=== PATIENT | female | born 1975 | race Caucasian/White ===

== ENCOUNTER 2017-12-02 16:11 | Inpatient (IN) ==
[2017-12-02] MEDS ORDERED: HYDROmorphone 2 MG/1 ML VIAL IV STA (21:29)
[2017-12-02] MEDS ORDERED: ONDANSETRON 4 MG/2 ML VIAL IV STA (21:29)
[2017-12-02] MEDS ORDERED: MORPHINE 4 MG/1 ML VIAL IV STA ×2 (21:40→23:52)
[2017-12-02 22:08] LABS: Basophils # 0.1 10*3/uL (0.0-0.2); Basophils % 0.8 % (0.0-0.8); Eosinophils # 0.4 10*3/uL (0.0-0.87); Eosinophils % 3.3 % (0.00-10.9); Hematocrit 41.5 VOL% (35.7-47.0); Hemoglobin 13.4 GM/DL (12.0-16.0); Immature Granulocytes % 0.6 %; Immature Granulocytes Absolute 0.08 #; Lymphocytes # 3.2 10*3/uL (1.4-4.0); Lymphocytes % 24.8 % (21.3-54.2); Mean Corpuscular HGB Conc 32.3 GM/DL (32-36); Mean Corpuscular Hemoglobin 28 PG (27-34); Mean Corpuscular Volume 86.6 FL (87-102); Mean Platelet Volume 10.1 FL (9.6-12.0); Monocytes # 0.9 10*3/uL (0.11-0.8); Monocytes % 7.1 % (1.7-12.7); Neutrophils # 8.2 10*3/uL (1.4-7.4); Neutrophils % 63.4 % (38.7-73.9); Platelet Count 461 T/CUMM (130-400); Red Blood Count 4.79 MC/CUMM (3.8-5.5); Red Cell Distribution Width 12.7 % (9.3-17.3); White Blood Count 12.9 T/CUMM (4-12)
[2017-12-02 22:15] LABS: Apearance,Urine Slightly Hazy (Clear); Bacteria,Urine Few /HPF (Few); Bilirubin,Urine Negative (Negative); Blood, Urine Small mg/dL (Negative); Glucose,Urine (UA) >=500 mg/dL (Negative); Ketones,Urine Negative (Negative); Mucus,Urine Occasional /LPF (Occasional); Nitrite,Urine Negative (Negative); Protein,Urine Negative; RBC,Urine 4 /HPF (0-4); Squamous Epithelial Cell,Urine Occasional /HPF (0-10); Transitional Epi Cells,Urine Occasional /HPF (<1); Urine Color Straw (Yellow); Urine Specific Gravity 1.007 (1.001-1.035); Urine Urobilinogen < 2.0 EU/DL (0.2-1.0); WBC,Urine 29 /HPF (0-6)
[2017-12-02 22:28] LABS: Alanine Aminotransferase 18 U/L (13-56); Albumin 3.3 G/DL (3.4-5.0); Alkaline Phosphatase 50 U/L (45-117); Aspartate Amino Transferase 16 U/L (0-37); Bilirubin,Total < 0.39 MG/DL (0.2-1.0); Blood Urea Nitrogen 13 MG/DL (7-18); Calcium 9.2 MG/DL (8.5-10.1); Glucose 110 MG/DL (74-106); Osmolality,Calculated 273.8 MOS/KG (273-304); Potassium 4.4 MMOL/L (3.5-5.1); Sodium 137 MMOL/L (136-145); Total Protein 8.3 G/DL (6.4-8.3)
[2017-12-03] MEDS ORDERED: cefOXitin 1,000 MG in SODIUM CHLORIDE 0.9% 100 ML IV STA (00:31)
[2017-12-03] MEDS ORDERED: ACETAMINOPHEN 325 MG TABLET PO PRN (00:32)
[2017-12-03] MEDS ORDERED: MORPHINE 4 MG/1 ML VIAL IV PRN (00:32)
[2017-12-03] MEDS ORDERED: BISACODYL 10 MG SUPP RECTAL PRN (00:32)
[2017-12-03] MEDS ORDERED: MAGNESIUM HYDROXIDE SUSP 30 ML UDCUP PO PRN (00:32)
[2017-12-03] MEDS ORDERED: LACTATED RINGERS 1,000 ML IV SCH (01:00)
[2017-12-03] MEDS ORDERED: CLINDAMYCIN 600 MG/4 ML VIAL ONE (01:12)
[2017-12-03] MEDS: SODIUM CHLORIDE 0.9% 1,000 ML IV SCH ×3 (01:12→17:58)
[2017-12-03] MEDS: CLINDAMYCIN INJ 900 MG in PREMIX 1 EACH IV SCH ×3 (01:20→16:58)
[2017-12-03] MEDS: ONDANSETRON 4 MG/2 ML VIAL IV PRN ×2 (03:40→09:25)
[2017-12-03] MEDS: IBUPROFEN 800 MG TABLET PO PRN ×2 (07:45→15:54)
[2017-12-03] MEDS ORDERED: CLINDAMYCIN INJ 50 ML IV ONE (09:08)
[2017-12-03] MEDS: DOCUSATE SODIUM 100 MG CAPSULE PO SCH ×2 (09:23→21:44)
[2017-12-03] MEDS ORDERED: ETOMIDATE 20 MG/10 ML VIAL IV ONE (09:29)
[2017-12-03] MEDS ORDERED: ROCURONIUM 100 MG/10 ML VIAL IV ONE (09:30)
[2017-12-04] MEDS: CLINDAMYCIN INJ 900 MG in PREMIX 1 EACH IV SCH ×2 (01:25→09:33)
[2017-12-04] MEDS: SODIUM CHLORIDE 0.9% 1,000 ML IV SCH (01:50)
[2017-12-04] MEDS: IBUPROFEN 800 MG TABLET PO PRN (03:03)
[2017-12-04 07:10] VITALS: BP 123/72
[2017-12-04 09:33] LABS: Basophils # 0.1 10*3/uL (0.0-0.2); Basophils % 0.6 % (0.0-0.8); Eosinophils # 0.3 10*3/uL (0.0-0.87); Eosinophils % 2.7 % (0.00-10.9); Hematocrit 36.2 VOL% (35.7-47.0); Hemoglobin 11.8 GM/DL (12.0-16.0); Immature Granulocytes % 0.6 %; Immature Granulocytes Absolute 0.06 #; Lymphocytes # 1.6 10*3/uL (1.4-4.0); Lymphocytes % 17.2 % (21.3-54.2); Mean Corpuscular HGB Conc 32.6 GM/DL (32-36); Mean Corpuscular Hemoglobin 28 PG (27-34); Mean Corpuscular Volume 85.6 FL (87-102); Mean Platelet Volume 10.4 FL (9.6-12.0); Monocytes # 0.6 10*3/uL (0.11-0.8); Monocytes % 6.3 % (1.7-12.7); Neutrophils # 6.8 10*3/uL (1.4-7.4); Neutrophils % 72.6 % (38.7-73.9); Platelet Count 365 T/CUMM (130-400); Red Blood Count 4.23 MC/CUMM (3.8-5.5); Red Cell Distribution Width 12.4 % (9.3-17.3); White Blood Count 9.3 T/CUMM (4-12)
[2017-12-04] MEDS: DOCUSATE SODIUM 100 MG CAPSULE PO SCH (09:35)
== END 2017-12-04 12:35 | disposition home or self-care (01) | DRG 700 ==
LOC: N.ED 16:11 → N.EDINP 12-03 00:32 → N.OB 12-03 15:12
PROVIDERS: ADMIT Obstetrics & Gynecology; ATTEND Obstetrics & Gynecology

== ENCOUNTER 2019-02-24 13:27 | Observation (INO) ==
[2019-02-24] MEDS ORDERED: SODIUM CHLORIDE 0.9% 1,000 ML IV STA (13:58)
[2019-02-24 14:47] LABS: Basophils % 0.3 % (0.0-0.8); Hematocrit 45.4 VOL% (35.7-47.0); Immature Granulocytes Absolute 0.07 #; Lymphocytes # 0.5 10*3/uL (1.4-4.0); Lymphocytes % 7.1 % (21.3-54.2); Mean Corpuscular Volume 90.1 FL (87-102); Mean Platelet Volume 10.1 FL (9.6-12.0); Monocytes % 1.6 % (1.7-12.7); Platelet Count 220 T/CUMM (130-400); Red Blood Count 5.04 MC/CUMM (3.8-5.5); Red Cell Distribution Width 15.2 % (9.3-17.3); White Blood Count 7.1 T/CUMM (4-12)
[2019-02-24 14:49] LABS: Alanine Aminotransferase 25 U/L (13-56); Albumin 2.8 G/DL (3.4-5.0); Alkaline Phosphatase 56 U/L (45-117); Aspartate Amino Transferase 24 U/L (0-37); Bilirubin,Total < 0.39 MG/DL (0.2-1.0); Blood Urea Nitrogen 23 MG/DL (7-18); Calcium 8.4 MG/DL (8.5-10.1); Glucose 267 MG/DL (74-106); Hemoglobin 13.6 GM/DL (12.0-16.0); Osmolality,Calculated 291.4 MOS/KG (273-304); Total Protein 6.7 G/DL (6.4-8.3)
[2019-02-24 15:44] LABS: Apearance,Urine CLOUDY (Clear); Bacteria,Urine Many /HPF (Few); Bilirubin,Urine Negative (Negative); Blood, Urine Negative (Negative); Glucose,Urine (UA) >=500 mg/dL (Negative); Ketones,Urine Negative (Negative); Mucus,Urine Occasional /LPF (Occasional); Nitrite,Urine Negative (Negative); Protein,Urine Negative; RBC,Urine 2 /HPF (0-4); Squamous Epithelial Cell,Urine Occasional /HPF (0-10); Urine Color Red (Yellow); Urine Urobilinogen < 2.0 EU/DL (0.2-1.0); WBC,Urine 6 /HPF (0-6)
[2019-02-24] MEDS ORDERED: ACETAMINOPHEN 500 MG TABLET PO STA (16:12)
[2019-02-24] MEDS ORDERED: ACETAMINOPHEN 500 MG TABLET ONE (16:19)
[2019-02-24 17:07] LABS: Band Neutrophils 2 % (0-10); Lymphocytes 7 % (20-55); Macrocytosis Slight; Platelet Estimate Normal; Segmented Neutrophils 89 % (50-85); Total Cells Counted 100
[2019-02-24] MEDS ORDERED: GLUCAGON 1 MG VIAL IM PRN (17:40)
[2019-02-24] MEDS ORDERED: ONDANSETRON 4 MG/2 ML VIAL IV PRN (17:40)
[2019-02-24] MEDS ORDERED: DEXTROSE 50% 25 GM/50 ML VIAL IV PRN (17:40)
[2019-02-24] MEDS ORDERED: IBUPROFEN 200 MG TABLET PO PRN (17:47)
[2019-02-24] MEDS ORDERED: ONDANSETRON 4 MG TABLET PO PRN (17:47)
[2019-02-24] MEDS ORDERED: ALBUTEROL 2.5 MG/3 ML NEB RESP TX PRN (17:47)
[2019-02-24] MEDS ORDERED: ENOXAPARIN 40 MG/0.4 ML SYRINGE SUBCUT SCH (21:00)
[2019-02-24] MEDS: GABAPENTIN 100 MG CAPSULE PO SCH (21:37)
[2019-02-24] MEDS: SODIUM CHLORIDE 0.9% 1,000 ML IV SCH (21:37)
[2019-02-24] MEDS: ACETAMINOPHEN 325 MG TABLET PO PRN (21:40)
[2019-02-24] MEDS: INSULIN REGULAR 100 UNIT/ML SUBCUT SCH (21:41)
[2019-02-24] MEDS: FLUTICASONE 50 MCG NASAL SPRAY 16 GM BOTTLE BOTH NARES SCH (23:25)
[2019-02-25 00:53] LABS: Basophils % 0.1 % (0.0-0.8); Hematocrit 33.4 VOL% (35.7-47.0); Hemoglobin 10.2 GM/DL (12.0-16.0); Immature Granulocytes % 0.6 %; Immature Granulocytes Absolute 0.05 #; Lymphocytes # 0.7 10*3/uL (1.4-4.0); Lymphocytes % 8.3 % (21.3-54.2); Mean Corpuscular HGB Conc 30.5 GM/DL (32-36); Mean Corpuscular Volume 89.1 FL (87-102); Monocytes % 2.1 % (1.7-12.7); Neutrophils % 88.9 % (38.7-73.9); Platelet Count 163 T/CUMM (130-400); Red Blood Count 3.75 MC/CUMM (3.8-5.5); Red Cell Distribution Width 15.2 % (9.3-17.3); White Blood Count 8.2 T/CUMM (4-12)
[2019-02-25 01:09] LABS: Calcium 8.1 MG/DL (8.5-10.1); Osmolality,Calculated 288.7 MOS/KG (273-304)
[2019-02-25] MEDS: ACETAMINOPHEN 325 MG TABLET PO PRN (03:33)
[2019-02-25] MEDS: SODIUM CHLORIDE 0.9% 1,000 ML IV SCH ×2 (06:00→16:46)
[2019-02-25] MEDS ORDERED: MAGNESIUM OXIDE 400 MG TABLET PO SCH (09:00)
[2019-02-25] MEDS ORDERED: PYRIDOXINE 100 MG TABLET PO SCH (09:00)
[2019-02-25] MEDS ORDERED: CETIRIZINE 10 MG TABLET PO SCH (09:00)
[2019-02-25] MEDS ORDERED: CHOLECALCIFEROL 1,000 UNIT TABLET PO SCH (09:00)
[2019-02-25] MEDS ORDERED: CYANOCOBALAMIN 500 MCG TABLET PO SCH (09:00)
[2019-02-25] MEDS ORDERED: PANTOPRAZOLE 40 MG TABLET PO SCH (09:00)
[2019-02-25] MEDS ORDERED: ESTRADIOL 1 MG TABLET PO SCH (09:00)
[2019-02-25] MEDS ORDERED: INSULIN GLARGINE 100 UNIT/ML SUBCUT SCH (09:00)
[2019-02-25] MEDS ORDERED: ASPIRIN EC 325 MG TABLET PO SCH (09:00)
[2019-02-25] MEDS: FLUTICASONE 50 MCG NASAL SPRAY 16 GM BOTTLE BOTH NARES SCH (09:18)
[2019-02-25] MEDS: GABAPENTIN 100 MG CAPSULE PO SCH ×2 (09:19→16:44)
[2019-02-25] MEDS: INSULIN REGULAR 100 UNIT/ML SUBCUT SCH ×3 (09:21→16:45)
[2019-02-25] MEDS ORDERED: LEVOFLOXACIN 250 MG TABLET PO SCH (15:00)
[2019-02-25 16:00] VITALS: BP 112/75
[2019-02-25] MEDS ORDERED: HEPARIN LOCK FLUSH 500 UNIT/5 ML SYRINGE IV PRN (16:29)
== END 2019-02-25 17:41 | disposition home or self-care (01) ==
LOC: EDBD → EDUNIT# → N.EDINP 13:27 → N.ED 13:27 → N.2E 19:04
PROVIDERS: ADMIT Hospitalist; ATTEND Hospitalist

== ENCOUNTER 2020-02-16 08:32 | Observation (INO) ==
[2020-02-16 09:24] LABS: Calcium 9.2 MG/DL (8.5-10.1); Osmolality,Calculated 279.7 MOS/KG (273-304)
[2020-02-16 09:26] LABS: Basophils % 0.5 % (0.0-0.8); Eosinophils # 0.2 10*3/uL (0.0-0.87); Eosinophils % 2.3 % (0.00-10.9); Hematocrit 31.4 VOL% (35.7-47.0); Hemoglobin 9.5 GM/DL (12.0-16.0); Immature Granulocytes Absolute 0.08 #; Mean Corpuscular HGB Conc 30.3 GM/DL (32-36); Mean Corpuscular Volume 98.1 FL (87-102); Mean Platelet Volume 9.6 FL (9.6-12.0); Monocytes % 7.2 % (1.7-12.7); NRBC # 0.02 10*3/uL; Platelet Count 159 T/CUMM (130-400); Red Cell Distribution Width 17.6 % (9.3-17.3); White Blood Count 7.8 T/CUMM (4-12)
[2020-02-16] MEDS ORDERED: SODIUM CHLORIDE 0.9% 1,000 ML IV STA (09:37)
[2020-02-16] MEDS ORDERED: SODIUM CHLORIDE 0.9% 2,000 ML IV STA (09:37)
[2020-02-16] MEDS ORDERED: CALCIUM GLUCONATE 1,000 MG in SODIUM CHLORIDE 0.9% 100 ML IV ONE (10:43)
[2020-02-16] MEDS ORDERED: INSULIN REGULAR 100 UNIT/ML IV STA (10:43)
[2020-02-16] MEDS ORDERED: SODIUM BICARBONATE 50 MEQ/50 ML VIAL IV STA (10:44)
[2020-02-16] MEDS ORDERED: DEXTROSE 50% 25 GM/50 ML VIAL IV STA (10:50)
[2020-02-16] MEDS ORDERED: ONDANSETRON 4 MG/2 ML VIAL IV PRN (10:54)
[2020-02-16] MEDS ORDERED: DEXTROSE 50% 25 GM/50 ML VIAL IV PRN ×2 (10:54→16:20)
[2020-02-16] MEDS ORDERED: ACETAMINOPHEN 325 MG TABLET PO PRN (10:54)
[2020-02-16] MEDS ORDERED: GLUCAGON 1 MG VIAL IM PRN ×2 (10:54→16:20)
[2020-02-16] MEDS ORDERED: DEXTROSE 50% 25 GM/50 ML SYRINGE IV ONE (10:59)
[2020-02-16] MEDS ORDERED: CALCIUM GLUCONATE 1,000 MG/10 ML VIAL IV ONE (11:11)
[2020-02-16] MEDS ORDERED: SODIUM POLYSTYRENE SULFATE 15 GM/60 ML BOTTLE PO ONE (15:52)
[2020-02-16] MEDS: SODIUM CHLORIDE 0.9% 1,000 ML IV SCH (16:13)
[2020-02-17 01:18] LABS: Apearance,Urine CLEAR (Clear); Bacteria,Urine Occasional /HPF (Few); Bilirubin,Urine Negative (Negative); Blood, Urine Negative (Negative); Glucose,Urine (UA) 150 mg/dL (Negative); Hyaline Casts,Urine 13 /LPF (0-3); Ketones,Urine Negative (Negative); Mucus,Urine Occasional /LPF (Occasional); Nitrite,Urine Negative (Negative); Protein,Urine Negative; RBC,Urine <1 /HPF (0-4); Squamous Epithelial Cell,Urine Occasional /HPF (0-10); Urine Color Straw (Yellow); Urine Specific Gravity 1.014 (1.001-1.035); Urine Urobilinogen < 2.0 EU/DL (0.2-1.0); WBC,Urine <1 /HPF (0-6)
[2020-02-17 05:59] LABS: Basophils % 0.1 % (0.0-0.8); Eosinophils # 0.1 10*3/uL (0.0-0.87); Eosinophils % 1.9 % (0.00-10.9); Hematocrit 25.8 VOL% (35.7-47.0); Hemoglobin 7.9 GM/DL (12.0-16.0); Immature Granulocytes % 0.6 %; Immature Granulocytes Absolute 0.04 #; Lymphocytes # 1.7 10*3/uL (1.4-4.0); Lymphocytes % 24.4 % (21.3-54.2); Mean Corpuscular HGB Conc 30.6 GM/DL (32-36); Mean Corpuscular Volume 96.3 FL (87-102); Mean Platelet Volume 9.6 FL (9.6-12.0); Monocytes % 8.7 % (1.7-12.7); Neutrophils % 64.3 % (38.7-73.9); Platelet Count 123 T/CUMM (130-400); Red Blood Count 2.68 MC/CUMM (3.8-5.5); Red Cell Distribution Width 17.8 % (9.3-17.3); White Blood Count 6.8 T/CUMM (4-12)
[2020-02-17] MEDS: SODIUM CHLORIDE 0.9% 1,000 ML IV SCH (06:03)
[2020-02-17 06:42] LABS: Alanine Aminotransferase 14 U/L (13-56); Albumin 2.6 G/DL (3.4-5.0); Alkaline Phosphatase 30 U/L (45-117); Aspartate Amino Transferase 16 U/L (0-37); Bilirubin,Total < 0.39 MG/DL (0.2-1.0); Blood Urea Nitrogen 24 MG/DL (7-18); Calcium 8.7 MG/DL (8.5-10.1); Estimated Glom Filtration Rate 52 ML/MIN; Glucose 87 MG/DL (74-106); HDL Cholesterol 27 MG/DL (40-60); Osmolality,Calculated 281.4 MOS/KG (273-304); Risk Ratio 5.44; Total Protein 6.3 G/DL (6.4-8.3); Triglycerides 234 MG/DL (2-150); VLDL CHOLESTEROL 46.8 MG/DL
[2020-02-17] MEDS ORDERED: MAGNESIUM SULF RIDER 4 GM in PREMIX 1 EACH IV PRN (07:52)
[2020-02-17] MEDS ORDERED: MAGNESIUM SULF RIDER 2 GM in PREMIX 1 EACH IV PRN (07:52)
[2020-02-17 07:54] VITALS: BP 114/64
[2020-02-17] MEDS ORDERED: SODIUM POLYSTYRENE SULFATE 15 GM/60 ML BOTTLE PO STA (08:39)
[2020-02-17] MEDS ORDERED: MAGNESIUM OXIDE 400 MG TABLET PO ONE (08:41)
[2020-02-17] MEDS ORDERED: PANTOPRAZOLE 40 MG TABLET PO SCH (09:00)
== END 2020-02-17 11:15 | disposition home or self-care (01) ==
LOC: EDBD → EDUNIT# → N.ED 08:32 → N.EDINP 08:32 → N.4E 12:47
PROVIDERS: ADMIT Internal Medicine; ATTEND Internal Medicine

== ENCOUNTER 2020-06-29 15:32 | Inpatient (IN) ==
[2020-06-29] MEDS ORDERED: DEXTROSE 50% 25 GM/50 ML VIAL IV PRN (19:39)
[2020-06-29] MEDS ORDERED: GLUCAGON 1 MG VIAL IM PRN (19:39)
[2020-06-29] MEDS ORDERED: ACETAMINOPHEN 325 MG TABLET PO PRN (19:39)
[2020-06-29 20:28] LABS: Basophils % 0.6 % (0.0-0.8); Eosinophils % 0.3 % (0.00-10.9); Hematocrit 34.1 VOL% (35.7-47.0); Hemoglobin 11.3 GM/DL (12.0-16.0); Immature Granulocytes % 2.8 %; Lymphocytes # 1.4 10*3/uL (1.4-4.0); Lymphocytes % 19.3 % (21.3-54.2); Mean Corpuscular HGB Conc 33.1 GM/DL (32-36); Mean Corpuscular Volume 96.3 FL (87-102); Mean Platelet Volume 9.2 FL (9.6-12.0); Monocytes % 8.6 % (1.7-12.7); Neutrophils % 68.4 % (38.7-73.9); Platelet Count 240 T/CUMM (130-400); Red Blood Count 3.54 MC/CUMM (3.8-5.5); Red Cell Distribution Width 18.3 % (9.3-17.3); White Blood Count 7.3 T/CUMM (4-12)
[2020-06-29] MEDS: SODIUM CHLORIDE 0.9% 1,000 ML IV SCH (20:53)
[2020-06-29 20:56] LABS: Bilirubin,Total 0.4 MG/DL (0.2-1.0); Calcium 9.7 MG/DL (8.5-10.1); Total Protein 7.2 G/DL (6.4-8.3)
[2020-06-29 21:24] LABS: INR 1.4; PT Patient Result 14.7 SECS (9.8-11.9); Partial Thromboplastin Time 29.7 SECS (23.9-33.8)
[2020-06-29] MEDS: MORPHINE 4 MG/1 ML VIAL IV PRN (22:11)
[2020-06-30] MEDS: PROMETHAZINE 25 MG/1 ML VIAL IM PRN ×2 (00:47→15:12)
[2020-06-30] MEDS: MORPHINE 4 MG/1 ML VIAL IV PRN ×3 (04:00→15:12)
[2020-06-30 07:57] LABS: Bacteria,Urine Occasional /HPF (Few); Bilirubin,Urine Negative (Negative); Blood, Urine Negative (Negative); Glucose,Urine (UA) >=500 mg/dL (Negative); Granular Casts,Urine 6 /LPF (0-1); Hyaline Casts,Urine 18 /LPF (0-3); Ketones,Urine 80 mg/dL (Negative); Mucus,Urine Occasional /LPF (Occasional); Nitrite,Urine Negative (Negative); Protein,Urine 30 MG/DL; RBC,Urine 3 /HPF (0-4); Squamous Epithelial Cell,Urine Occasional /HPF (0-10); Urine Appearance Slightly Hazy (Clear); Urine Color Yellow (Yellow); Urine Specific Gravity 1.027 (1.001-1.035); Urine Urobilinogen < 2.0 EU/DL (0.2-1.0); WBC,Urine 15 /HPF (0-6)
[2020-06-30] MEDS: SODIUM CHLORIDE 0.9% 1,000 ML IV SCH (10:18)
[2020-06-30] MEDS ORDERED: ONDANSETRON 4 MG/2 ML VIAL IM PRN (10:35)
[2020-06-30] MEDS: ONDANSETRON 4 MG/2 ML VIAL IV PRN ×2 (10:43→18:09)
[2020-06-30] MEDS ORDERED: ONDANSETRON 4 MG/2 ML VIAL IV PRN (11:00)
[2020-06-30 12:01] LABS: Neutrophils,Peritoneal Fluid 62 %; RBC,Peritoneal Fluid 5874 T/CUMM
[2020-06-30] MEDS ORDERED: SODIUM BICARB INJ 50 MEQ in SODIUM CHLORIDE 0.45% 1,000 ML IV SCH (16:30)
[2020-06-30] MEDS ORDERED: hydrOXYzine HCL 25 MG TABLET PO PRN (16:51)
[2020-06-30] MEDS ORDERED: fentaNYL 75 MCG/HR PATCH TRANSDERM SCH (17:00)
[2020-06-30] MEDS: levETIRAcetam 500 MG TABLET PO SCH (18:02)
[2020-06-30] MEDS: METOPROLOL SUCCINATE XL 100 MG TABLET PO SCH ×2 (18:02→22:16)
[2020-06-30] MEDS: METOCLOPRAMIDE 10 MG/2 ML VIAL IV SCH ×2 (18:03→23:05)
[2020-06-30] MEDS ORDERED: ALUMINUM/MAGNES/SIMETH MAX STR 30 ML UDCUP PO PRN (20:21)
[2020-06-30] MEDS: MAGNESIUM CHLORIDE 64 MG TABLET PO SCH (20:42)
[2020-06-30] MEDS: PANTOPRAZOLE 40 MG TABLET PO SCH (20:42)
[2020-06-30] MEDS: LACTATED RINGERS 1,000 ML IV SCH (20:43)
[2020-06-30] MEDS ORDERED: ENOXAPARIN 40 MG/0.4 ML SYRINGE SUBCUT SCH (21:00)
[2020-06-30] MEDS ORDERED: AMITRIPTYLINE 25 MG TABLET PO SCH (21:00)
[2020-07-01] MEDS: METOCLOPRAMIDE 10 MG/2 ML VIAL IV SCH ×2 (05:09→12:53)
[2020-07-01] MEDS: LACTATED RINGERS 1,000 ML IV SCH (05:10)
[2020-07-01 05:45] LABS: Basophils % 0.6 % (0.0-0.8); Eosinophils # 0.1 10*3/uL (0.0-0.87); Eosinophils % 1.3 % (0.00-10.9); Hematocrit 32.3 VOL% (35.7-47.0); Hemoglobin 10.7 GM/DL (12.0-16.0); Immature Granulocytes % 2.7 %; Immature Granulocytes Absolute 0.18 #; Lymphocytes % 14.7 % (21.3-54.2); Mean Corpuscular HGB Conc 33.1 GM/DL (32-36); Mean Corpuscular Volume 95.8 FL (87-102); Mean Platelet Volume 9.1 FL (9.6-12.0); Monocytes % 11.6 % (1.7-12.7); Neutrophils % 69.1 % (38.7-73.9); Platelet Count 166 T/CUMM (130-400); Red Blood Count 3.37 MC/CUMM (3.8-5.5); White Blood Count 6.7 T/CUMM (4-12)
[2020-07-01 06:41] LABS: Calcium 8.4 MG/DL (8.5-10.1); Osmolality,Calculated 272.8 MOS/KG (273-304)
[2020-07-01] MEDS ORDERED: ASPIRIN EC 81 MG TABLET PO SCH (09:00)
[2020-07-01] MEDS ORDERED: TAMOXIFEN 10 MG TABLET PO SCH (09:00)
[2020-07-01] MEDS: levETIRAcetam 500 MG TABLET PO SCH (09:35)
[2020-07-01] MEDS: METOPROLOL SUCCINATE XL 100 MG TABLET PO SCH (09:36)
[2020-07-01] MEDS: MAGNESIUM CHLORIDE 64 MG TABLET PO SCH (09:36)
[2020-07-01] MEDS: PANTOPRAZOLE 40 MG TABLET PO SCH (09:36)
[2020-07-01] MEDS ORDERED: MAGNESIUM SULF RIDER 2 GM in PREMIX 1 EACH IV ONE (11:37)
[2020-07-01 16:22] VITALS: BP 101/70
== END 2020-07-01 16:37 | disposition home health service (06) | DRG 755 ==
LOC: N.3E 18:33 → SUATTDRO 18:33
PROVIDERS: ADMIT Internal Medicine; ATTEND Internal Medicine

== ENCOUNTER 2020-07-10 08:40 | Observation (INO) ==
[2020-07-10] MEDS ORDERED: SODIUM CHLORIDE 0.9% 1,000 ML IV STA (09:29)
[2020-07-10] MEDS ORDERED: ONDANSETRON 4 MG/2 ML VIAL IV STA (09:29)
[2020-07-10] MEDS ORDERED: HYDROmorphone 2 MG/1 ML VIAL IV STA ×2 (10:18→13:03)
[2020-07-10 10:33] LABS: Basophils % 0.4 % (0.0-0.8); Eosinophils % 0.3 % (0.00-10.9); Hematocrit 34.5 VOL% (35.7-47.0); Hemoglobin 11.3 GM/DL (12.0-16.0); Immature Granulocytes % 1.5 %; Immature Granulocytes Absolute 0.11 #; Lymphocytes % 12.5 % (21.3-54.2); Mean Corpuscular HGB Conc 32.8 GM/DL (32-36); Mean Corpuscular Volume 96.9 FL (87-102); Mean Platelet Volume 9.6 FL (9.6-12.0); Monocytes % 6.9 % (1.7-12.7); Neutrophils % 78.4 % (38.7-73.9); Platelet Count 254 T/CUMM (130-400); Red Blood Count 3.56 MC/CUMM (3.8-5.5); Red Cell Distribution Width 17.6 % (9.3-17.3); White Blood Count 7.6 T/CUMM (4-12)
[2020-07-10 10:47] LABS: Alanine Aminotransferase 13 U/L (13-56); Albumin 2.2 G/DL (3.4-5.0); Alkaline Phosphatase 47 U/L (45-117); Aspartate Amino Transferase 18 U/L (0-37); Bilirubin,Total < 0.39 MG/DL (0.2-1.0); Blood Urea Nitrogen 30 MG/DL (7-18); Calcium 9.4 MG/DL (8.5-10.1); Estimated Glom Filtration Rate 40 ML/MIN; Glucose 119 MG/DL (74-106); Osmolality,Calculated 274.2 MOS/KG (273-304); Total Protein 6.6 G/DL (6.4-8.3)
[2020-07-10 11:13] LABS: Blood, Urine Negative (Negative); Glucose,Urine (UA) >=500 mg/dL (Negative); Hyaline Casts,Urine 10 /LPF (0-3); Ketones,Urine 5 mg/dL (Negative); Mucus,Urine Few /LPF (Occasional); Nitrite,Urine Negative (Negative); Protein,Urine 30 MG/DL; RBC,Urine 3 /HPF (0-4); Squamous Epithelial Cell,Urine Occasional /HPF (0-10); Urine Appearance CLOUDY (Clear); Urine Color Amber (Yellow); Urine Specific Gravity 1.029 (1.001-1.035); WBC,Urine 31 /HPF (0-6)
[2020-07-10 11:15] LABS: Bilirubin,Urine Small mg/dL (Negative)
[2020-07-10] MEDS ORDERED: GLUCAGON 1 MG VIAL IM PRN (14:12)
[2020-07-10] MEDS ORDERED: DEXTROSE 50% 25 GM/50 ML VIAL IV PRN (14:12)
[2020-07-10] MEDS ORDERED: ACETAMINOPHEN 325 MG TABLET PO PRN (14:12)
[2020-07-10] MEDS ORDERED: fentaNYL 100 MCG/HR PATCH TRANSDERM SCH (16:00)
[2020-07-10] MEDS ORDERED: ALPRAZolam 0.25 MG TABLET PO PRN (16:22)
[2020-07-10] MEDS ORDERED: LACTULOSE 20 GM/30 ML UDCUP PO PRN (16:22)
[2020-07-10] MEDS ORDERED: ALUMINUM/MAGNES/SIMETH MAX STR 30 ML UDCUP PO PRN (16:22)
[2020-07-10] MEDS ORDERED: ONDANSETRON 4 MG/2 ML VIAL IV PRN (16:22)
[2020-07-10] MEDS ORDERED: diphenhydrAMINE CAP 25 MG CAPSULE PO PRN (16:22)
[2020-07-10] MEDS ORDERED: MAGNESIUM HYDROXIDE SUSP 30 ML UDCUP PO PRN (16:22)
[2020-07-10] MEDS ORDERED: guaiFENesin 200 MG/10 ML UDCUP PO PRN (16:22)
[2020-07-10] MEDS ORDERED: MYLANTA/LIDO VISC 2:1 300 ML BOTTLE SWISH/SWAL PRN (16:22)
[2020-07-10] MEDS ORDERED: traMADol 50 MG TABLET PO PRN (16:22)
[2020-07-10] MEDS ORDERED: TEMAZEPAM 7.5 MG CAPSULE PO PRN (16:22)
[2020-07-10] MEDS ORDERED: MYLANTA/LIDO VISC 2:1 300 ML BOTTLE SWISH/SPIT PRN (16:22)
[2020-07-10] MEDS ORDERED: LOPERAMIDE 2 MG CAPSULE PO PRN ×2 (16:22)
[2020-07-10] MEDS: PROMETHAZINE INJ 25 MG in SODIUM CHLORIDE 0.9% 50 ML IV PRN (18:50)
[2020-07-10] MEDS: MORPHINE 4 MG/1 ML VIAL IV PRN (20:23)
[2020-07-11] MEDS: MORPHINE 4 MG/1 ML VIAL IV PRN ×4 (01:21→14:47)
[2020-07-11] MEDS: PROMETHAZINE INJ 25 MG in SODIUM CHLORIDE 0.9% 50 ML IV PRN ×2 (01:55→08:21)
[2020-07-11 05:28] LABS: Basophils % 0.5 % (0.0-0.8); Eosinophils # 0.1 10*3/uL (0.0-0.87); Eosinophils % 1.5 % (0.00-10.9); Hematocrit 31.5 VOL% (35.7-47.0); Hemoglobin 10.5 GM/DL (12.0-16.0); Immature Granulocytes % 1.7 %; Immature Granulocytes Absolute 0.13 #; Lymphocytes # 1.6 10*3/uL (1.4-4.0); Mean Corpuscular HGB Conc 33.3 GM/DL (32-36); Mean Corpuscular Volume 96.3 FL (87-102); Mean Platelet Volume 9.4 FL (9.6-12.0); Monocytes % 9.7 % (1.7-12.7); Neutrophils % 65.6 % (38.7-73.9); Platelet Count 233 T/CUMM (130-400); Red Blood Count 3.27 MC/CUMM (3.8-5.5); Red Cell Distribution Width 17.4 % (9.3-17.3); White Blood Count 7.5 T/CUMM (4-12)
[2020-07-11 06:42] LABS: Alanine Aminotransferase 11 U/L (13-56); Alkaline Phosphatase 44 U/L (45-117); Aspartate Amino Transferase 14 U/L (0-37); Bilirubin,Total < 0.39 MG/DL (0.2-1.0); Blood Urea Nitrogen 32 MG/DL (7-18); Estimated Glom Filtration Rate 40 ML/MIN; Glucose 76 MG/DL (74-106); HDL Cholesterol 30 MG/DL (40-60); Risk Ratio 4.87; Total Protein 6.1 G/DL (6.4-8.3); Triglycerides 175 MG/DL (2-150)
[2020-07-11] MEDS: ONDANSETRON 4 MG/2 ML VIAL IV PRN ×2 (08:15→14:46)
[2020-07-11] MEDS ORDERED: PANTOPRAZOLE 40 MG TABLET PO SCH (09:00)
[2020-07-11 10:41] LABS: INR 1.2
[2020-07-11 17:09] VITALS: BP 103/78
== END 2020-07-11 17:10 | disposition home health service (06) ==
LOC: EDUNIT# → EDBD → N.5E 08:40 → N.ED 08:40 → SUATTDRO 14:10 → N.5E 15:40
PROVIDERS: ADMIT Family Medicine; ATTEND Internal Medicine